=== PATIENT | female | born 1935 | race Caucasian/White ===

== ENCOUNTER → 2023-03-25 10:50 | Outpatient (REF) | payer OTHER, SELFPAY | LOC: DHCBC MAIN 10:50 | PROVIDERS: ATTENDING PHYSICIAN Internal Medicine Cardiovascular Disease; FAMILY PHYSICIAN Family Medicine | DX: Z95.2 Presence of prosthetic heart valve (principal); I34.2 Nonrheumatic mitral (valve) stenosis | CPT/HCPCS: 93306 ==

== ENCOUNTER 2023-06-01 08:17 | Outpatient (RCR) | payer OTHER, SELFPAY | END 2023-06-01 23:59 | disposition home or self-care (01) | LOC: RPT 08:17 | PROVIDERS: ATTENDING PHYSICIAN Internal Medicine Cardiovascular Disease; FAMILY PHYSICIAN Family Medicine | DX: I89.0 Lymphedema, not elsewhere classified (principal); Z73.6 Limitation of activities due to disability | CPT/HCPCS: 97163; 97535 ==

== ENCOUNTER 2023-06-30 11:02 | Outpatient (RCR) | payer OTHER, SELFPAY | END 2023-06-30 23:59 | disposition home or self-care (01) | LOC: RPT 11:02 | PROVIDERS: ATTENDING PHYSICIAN Internal Medicine Cardiovascular Disease; FAMILY PHYSICIAN Family Medicine | DX: I89.0 Lymphedema, not elsewhere classified (principal); Z73.6 Limitation of activities due to disability | CPT/HCPCS: 97140; 97535; 97760 ==

== ENCOUNTER → 2023-10-07 12:23 | Outpatient (REF) | payer OTHER, SELFPAY | LOC: WDC 12:23 | PROVIDERS: ATTENDING PHYSICIAN Nurse Practitioner Adult Health; FAMILY PHYSICIAN Family Medicine | DX: Z12.31 Encounter for screening mammogram for malignant neoplasm of breast (principal) | CPT/HCPCS: 77063; 77067 ==

== ENCOUNTER → 2024-04-10 10:00 | Outpatient (REF) | payer OTHER, SELFPAY | LOC: RAD 10:00 | PROVIDERS: ATTENDING PHYSICIAN Internal Medicine Hematology & Oncology; FAMILY PHYSICIAN Family Medicine | DX: C50.411 Malignant neoplasm of upper-outer quadrant of right female breast (principal); D64.9 Anemia, unspecified; N85.00 Endometrial hyperplasia, unspecified | CPT/HCPCS: 77080 ==

== ENCOUNTER → 2024-04-13 12:48 | Outpatient (REF) | payer OTHER, SELFPAY | LOC: RCS 12:48 | PROVIDERS: ATTENDING PHYSICIAN Internal Medicine Cardiovascular Disease; FAMILY PHYSICIAN Family Medicine | DX: I34.0 Nonrheumatic mitral (valve) insufficiency (principal); I10 Essential (primary) hypertension; I27.20 Pulmonary hypertension, unspecified | CPT/HCPCS: 93306 ==

== ENCOUNTER → 2024-10-10 12:24 | Outpatient (REF) | payer OTHER, SELFPAY | LOC: WDC 12:24 | PROVIDERS: ATTENDING PHYSICIAN Nurse Practitioner Adult Health; FAMILY PHYSICIAN Family Medicine | DX: Z12.31 Encounter for screening mammogram for malignant neoplasm of breast (principal) | CPT/HCPCS: 77063; 77067 ==